=== PATIENT | female | born 1955 | race Caucasian/White ===

== ENCOUNTER → 2024-02-07 12:56 | Outpatient (REF) | payer MEDICARE, OTHER, SELFPAY | LOC: RAD 12:56 | PROVIDERS: ATTENDING PHYSICIAN Family Medicine | DX: R91.8 Other nonspecific abnormal finding of lung field (principal) | CPT/HCPCS: 71260; Q9967 ==

== ENCOUNTER → 2024-03-07 08:44 | Outpatient (REF) | payer MEDICARE, OTHER, SELFPAY | LOC: RAD 08:44 | PROVIDERS: ATTENDING PHYSICIAN Internal Medicine Endocrinology, Diabetes & Metabolism; FAMILY PHYSICIAN Family Medicine | DX: E83.52 Hypercalcemia (principal); M81.0 Age-related osteoporosis without current pathological fracture | CPT/HCPCS: 78071; A9500 ==

== ENCOUNTER → 2024-03-14 07:34 | Outpatient (REF) | payer MEDICARE, OTHER, SELFPAY | LOC: HWRAD 07:34 | PROVIDERS: ATTENDING PHYSICIAN Internal Medicine Endocrinology, Diabetes & Metabolism; FAMILY PHYSICIAN Family Medicine; REFERRING PHYSICIAN Physical Medicine & Rehabilitation | DX: E83.52 Hypercalcemia (principal); M81.0 Age-related osteoporosis without current pathological fracture | CPT/HCPCS: 76536 ==

== ENCOUNTER → 2025-02-04 13:23 | Outpatient (REF) | payer MEDICARE, OTHER, SELFPAY | LOC: RAD 13:23 | PROVIDERS: ATTENDING PHYSICIAN Physician Assistant; FAMILY PHYSICIAN Family Medicine | DX: E04.2 Nontoxic multinodular goiter (principal) | CPT/HCPCS: 76536 ==

== ENCOUNTER → 2025-03-04 10:28 | Outpatient (REF) | payer MEDICARE, OTHER, SELFPAY | LOC: RAD 10:28 | PROVIDERS: ATTENDING PHYSICIAN Family Medicine | DX: R91.8 Other nonspecific abnormal finding of lung field (principal) | CPT/HCPCS: 71260; Q9967 ==